=== PATIENT | female | born 1960 | race Caucasian/White ===

== ENCOUNTER 2019-07-20 12:25 | Emergency (ER) | payer MEDICARE ==
--- NOTE | 2019-07-20 12:48 | ER Document Report ---
HPI - HPI Time Seen by Provider: 07/20/19 12:41 Pain Level: 3 Context: 58-year-old female presents to the emergency department with chief complaint of left eye pain that started this morning. Patient states she was already awake when she started get some irritation in the 10 o'clock position of her eye. She does not wear contact lenses. Was not doing anything that could cause foreign debris. Patient states that she tried to look at initiating her eye so she alaina ght treatment Past Medical History - Social History Smoking Status: Current Every Day Smoker Chew tobacco use (# tins/day): No Frequency of alcohol use: Social Drug Abuse: None Family History: None Patient has suicidal ideation: No Patient has homicidal ideation: No Vertical Provider Document - CONSTITUTIONAL Notes: PHYSICAL EXAMINATION: Reviewed vital signs and charting by RN GENERAL: Alert, interacts well. No acute distress. HEAD: Normocephalic, atraumatic. EYES: Pupils equal and round. Extraocular movements intact. ENT: Oral mucosa moist, tongue midline. NECK: Full range of motion. Trachea midline. EXTREMITIES: Moves all 4 extremities spontaneously. No edema, No cyanosis. PSYCH: Normal affect, normal mood. SKIN: Warm, dry, normal turgor. No rashes or lesions noted. - INFECTION CONTROL TRAVEL OUTSIDE OF THE [place] IN LAST 30 DAYS: No Course - Re-evaluation Re-evalutation: 07/20/19 14:08 Well-appearing no acute distress. Patient declined visual acuity. I was thoroughly examined using floor seen stain and Haro lamp. There was a very small white-colored growth on the patient's anterior eyelid up where she feels a sensation of foreign body. There is also some corneal irritation most likely due to her rubbing her eye. I am still going to place her on Polytrim drops and have her follow-up with her primary doctor to get ophthalmology consult if necessary. She has extra ocular movements that are intact, no evidence of eye entrapment, no purulent discharge, no evidence of a preseptal or septal cellulitis. Patient is stable for discharge. - Vital Signs Vital signs: Temp Pulse Resp BP Pulse Ox 97.9 F 87 18 163/68 H 99 07/20/19 12:29 07/20/19 12:29 07/20/19 12:29 07/20/19 12:29 07/20/19 12:29 Discharge - Discharge Clinical Impression: Acute left eye pain Corneal irritation Qualifiers: Laterality: left Qualified Code(s): H18.892 - Other specified disorders of cornea, left eye Condition: Good Disposition: HOME, SELF-CARE Additional Instructions: You have a corneal irritation of your left eye most likely from that small white growth/stye on your left eyelid. This should improve in the next several days. You should apply the eye drops to the affected eye every 2-3 hours no more than 8 times per day. Also try to do hot compresses on the eye several times a day. Follow-up with your eye doctor at your earliest ability. Return if you have decreased vision, worsening pain, increased drainage from the eye, you notice redness or puffiness around the eye, you develop a fever greater than 101F, or you have any other symptoms that are concerning to you.
[2019-07-20] MEDS ORDERED: TETRACAINE HCL 0.5% OPH SOLN 4 ML OS ONE (13:49)
[2019-07-20] MEDS ORDERED: POLYMYXIN B SULFATE/TMP OPH SOLN (10 ML/ER DISP) OS PRN (14:16)
[2019-07-20 14:26] VITALS: BP 166/71
== END 2019-07-20 14:25 | disposition home or self-care (01) ==
LOC: ER 12:25
DX: H57.12 Ocular pain, left eye (principal); H18.892 Other specified disorders of cornea, left eye; F17.200 Nicotine dependence, unspecified, uncomplicated
CPT/HCPCS: A9270; J3490; 99283

== ENCOUNTER 2020-08-05 07:51 | Day surgery (SDC) | payer MEDICARE ==
[2020-08-05] MEDS ORDERED: NORMAL SALINE INJ/PF 0.9% 10 ML SDV ONE (09:32)
[2020-08-05] MEDS ORDERED: BUPIVACAINE HCL 0.5 % INJ/PF 30 ML SDV ONE (09:32)
[2020-08-05] MEDS ORDERED: POLYMYXIN B SULFATE INJ 500000 UNIT VIAL ONE (09:32)
[2020-08-05] MEDS ORDERED: LIDOCAINE 2% INJ (20 MG/ML) 20 ML MDV ONE (09:32)
[2020-08-05] MEDS ORDERED: BACITRACIN INJ 50,000 UNIT VIAL ONE (09:33)
--- NOTE | 2020-08-05 10:36 | Operative Report ---
Operative Report DATE OF SURGERY: 08/05/20 PREOPERATIVE DIAGNOSIS: Soft tissue mass left foot. POSTOPERATIVE DIAGNOSIS: Pain. OPERATION: Excision of soft tissue mass dorsum left forefoot. SURGEON: SHIN DELUNA ANESTHESIA: Local TISSUE REMOVED OR ALTERED: Soft tissue mass left foot. COMPLICATIONS: None. PROCEDURE: On 08/05/2020 patient was admitted surgery care with a complaint of painful mass on the top of her left foot. Patient was taken the operating room, where following regional local anesthesia the patient's left foot and leg were prepped and draped in a sterile manner. A pneumatic tourniquet was placed proximal ankle malleoli, Esmarch was applied, tourniquet was inflated level of 250 mmHg for hemostasis, Esmarch was removed, sterile draping was completed. Removal of soft tissue mass left foot: Attention was directed dorsal aspect the patient's left foot where there is firm freely movable soft tissue mass overlying the third intermetatarsal space. 2-1/2 cm linear incision was placed directly over the soft tissue mass was deepened through subtenons tissue superficial fascia all bleeding vessels were clamped ligated and bovied as necessary for hemostasis. Dissection was carried out bluntly and the cyst, which was freely movable, and without any attachments to any of the surrounding soft tissue structures was removed in toto. The Soft tissue mass measured 1.7 cm x 1.5 cm. The mass was firm and white. The mass was placed in formalin and will be sent to pathology for further review. At that time the tourniquet was deflated all bleeding vessels were clamped and bovied as necessary for hemostasis. Once hemostasis had been obtained the wound was flushed with copious amounts of sterile antibiotic solution. At that time the subcutaneous tissue was coapted maintained with supportive suture of 4-0 Vicryl. Skin incision was then coapted maintained with interrupted horizontal mattress suture of 5-0 nylon. Sterile dressing consisting of Dev silk, fluff, gauze, conform, Kerlix and Coban was applied to the patient's left foot. Patient tolerated surgery and anesthesia well was taken recovery room.
[2020-08-05 11:32] VITALS: BP 142/79
== END 2020-08-05 11:07 | disposition home or self-care (01) ==
LOC: SC 07:51
PROVIDERS: ATTEND Preventive Medicine Undersea and Hyperbaric Medicine
DX: D21.22 Benign neoplasm of connective and other soft tissue of left lower limb, including hip (principal); Z01.812 Encounter for preprocedural laboratory examination; Z20.828 Contact with and (suspected) exposure to other viral communicable diseases; J44.9 Chronic obstructive pulmonary disease, unspecified; I10 Essential (primary) hypertension; K21.9 Gastro-esophageal reflux disease without esophagitis; E78.5 Hyperlipidemia, unspecified; F32.9 Major depressive disorder, single episode, unspecified
CPT/HCPCS: 88304 ×2; 28039; L3260; U0003; J3490 ×5; C9803; 87635